=== PATIENT | female | born 1945 | race Caucasian/White ===

== ENCOUNTER 2024-11-25 13:26 | Outpatient (CLI) | payer MEDICARE ==
--- NOTE | 2024-11-25 20:33 | RADIOLOGY REPORT ---
Procedure: MR MRI UPPER EXTREMITY RIGHT 11/25/2024 01:25 PM INDICATION: PAIN IN RIGHT SHOULDER,STRAIN OF MUSC/TEND THE ROTATOR CUFF OF RIGHT SHOULD COMPARISON: None TECHNIQUE: Multiplanar, multisequence MRI of the right shoulder was performed. FINDINGS: Supraspinatus: Severe Tendinosis complicated with A high-grade partial-thickness partial width tear with the severe thinning of the tendon . No tendon retraction noted. There is moderate muscle atroph y. Infraspinatus: Normal in morphology and signal. Subscapularis: Moderate tendinosis and mild interstitial tearing without tendon retraction. Teres minor: Normal in morphology and signal. Biceps tendon: Long head biceps tendon is normal in morphology and signal. Short head biceps tendon is intact. Subacromial bursa: Severe fluid distention and synovial proliferation. Subcoracoid bursa: Moderate fluid distention. Acromioclavicular joint: Degenerative hypertrophy. Mild widening of the joint space with thinning an d partial tear of the acromioclavicular ligaments.Small joint effusion. Type II acromion. Glenohumeral joint: Preservation of the joint space. Small joint effusion. No bony proliferative or erosive change. Glenoid labrum: Unremarkable in this non-arthrographic study. Bones: No suspicious lesion is identified. Other: Unremarkable. IMPRESSION: 1. Moderate degenerative hypertrophy of the acromioclavicular joint, grade 2 AC separation with evide nce of partial tears of the superior and inferior AC ligaments, small joint effusion and subacromial spurring with evidence of rotator cuff impingement. 2. Severe supraspinatus Tendinosis complicated high-grade partial-thickness tendon tear with severe t hinning of the tendon suggestion of small areas of full-thickness tear. No tendon retraction. Modera te muscle atrophy. 3. Moderate subscapularis tendinosis with mild interstitial tearing without tendon retraction. 4. Severe fluid distention of subacromial-subdeltoid bursal synovial proliferation may reflect bursit is. In addition, moderate fluid distention of the subcoracoid bursa and small glenohumeral joint effu [place] and synovial proliferation may reflect omental inflammatory arthritis. No periarticular erosion. Recommend clinical and biochemical correlation.
== END 2024-11-25 23:59 | disposition home or self-care (01) ==
LOC: MRI02 13:26
PROVIDERS: ATTEND Orthopaedic Surgery
DX: S46.011A Strain of muscle(s) and tendon(s) of the rotator cuff of right shoulder, initial encounter (principal); M25.511 Pain in right shoulder; M19.011 Primary osteoarthritis, right shoulder; X58.XXXA Exposure to other specified factors, initial encounter; Y93.89 Activity, other specified; Y92.89 Other specified places as the place of occurrence of the external cause; Y99.8 Other external cause status
CPT/HCPCS: 73221